=== PATIENT | female | born 1955 | race American Indian/Alaskan Native ===

== ENCOUNTER 2018-11-19 21:09 | Emergency (ER) | payer MEDICARE, OTHER ==
--- NOTE | 2018-11-19 21:46 | EDM.PDOC ---
ED HPI GENERAL MEDICAL PROBLEM - General Chief Complaint: Cardiovascular Problem Stated Complaint: SOB Time Seen by Provider: 11/19/18 21:30 Source of Information: Reports: Patient, Family History Limitations: Reports: No Limitations - History of Present Illness INITIAL COMMENTS - FREE TEXT/NARRATIVE: Juan comes into [facility] ED with progressive SOB over the past 24 hrs. She prefers to sit up when sleeping, and frequently sleeps in a chair. She reports no chest pain, palpitations, PND, PNA, cough or wheezing. She was hospitalized in [place], [place] last February for breathing issues, and has an appointment December 14 with a testing director in [place], [place]. She is currently living with her son and spouse locally. - Related Data Allergies Allergy/AdvReac Type Severity Reaction Status Date / Time Penicillins Allergy Hives Verified 11/19/18 23:14 Home Meds: Home Meds Alogliptin Benzoate [Alogliptin] 12.5 mg PO DAILY 11/19/18 [History] Calcium Carb/Vit D3/Minerals [Hm Calcium 600 mg-Vit D Tab] 600 mg PO BID [History] Cholecalciferol (Vitamin D3) [Vitamin D3] 1,000 units PO DAILY 11/19/18 [History ] Furosemide 40 mg PO DAILY 11/19/18 [History] Gabapentin [Neurontin] 100 mg PO BID 11/19/18 [History] Levothyroxine [Synthroid] 50 mcg PO ACBREAKFAST 11/19/18 [History] Lisinopril 5 mg PO DAILY 11/19/18 [History] Metoprolol Succinate 25 mg PO DAILY 11/19/18 [History] Omeprazole 20 mg PO DAILY 11/19/18 [History] atorvaSTATin [Lipitor] 40 mg PO DAILY 11/19/18 [History] ED ROS GENERAL - Review of Systems Review Of Systems: See Below Constitutional: Reports: Malaise, Weakness, Fatigue Respiratory: Reports: Shortness of Breath Cardiovascular: Reports: Dyspnea on Exertion, Orthopnea Endocrine: Reports: Fatigue GI/Abdominal: Reports: No Symptoms : Reports: No Symptoms Musculoskeletal: Reports: No Symptoms Skin: Reports: No Symptoms Neurological: Reports: No Symptoms Psychiatric: Reports: No Symptoms Hematologic/Lymphatic: Reports: No Symptoms Immunologic: Reports: No Symptoms ED EXAM, GENERAL - Physical Exam Exam: See Below Exam Limited By: No Limitations General Appearance: Alert, WD/WN, Mild Distress Eye Exam: Bilateral Eye: EOMI, Normal Inspection, PERRL Ears: Normal External Exam Nose: Normal Inspection Throat/Mouth: Normal Inspection, Normal Lips, No Airway Compromise Head: Normocephalic Neck: Normal Inspection, Supple, Full Range of Motion Respiratory/Chest: No Respiratory Distress, No Accessory Muscle Use, Chest Non- Tender, Decreased Breath Sounds Cardiovascular: Normal Peripheral Pulses, Regular Rate, Rhythm, No Edema, No Gallop, No Murmur, Other (JVD to 1") GI/Abdominal: Normal Bowel Sounds, Soft, Non-Tender, No Organomegaly, No Distention, No Mass (Female) Exam: Deferred Rectal (Female) Exam: Deferred Back Exam: Normal Inspection Extremities: Normal Inspection Neurological: Alert, Oriented, CN II-XII Intact, No Motor/Sensory Deficits Psychiatric: Normal Mood, Flat Affect Skin Exam: Warm, Dry, Intact, Normal Color, No Rash Lymphatic: No Adenopathy Course - Vital Signs Text/Narrative:: Following assessment, 02 per hydrogenation operator was provided pending results of medical workup including: chest x ray noting cardiac enlargment and pleural effusions; ekg noting NSR with LVH; CBC baseline; CMP noting GFR 22 ml/hr, BNP 35,000, Cr 2.2; BUN 43; mixed CHF is suspected with low output impacting on impaired renal function. I recommended transfer to [facility], and patient wants to go back to [facility] home and travel to [place] tomorrow to see testing director. I again advised transfer to [facility], and patient refused. She promised to go to [facility] tomorrow, and her wishes will be honored. She may return at anytime to expedite care to testing director. - Orders/Labs/Meds Orders: Active Orders 24 hr Category Date Time Status EKG Documentation Completion [RC] ASDIRECTED Care 11/19/18 21:23 Active Chest 1V Frontal [CR] Stat Exams 11/19/18 21:22 Taken EKG 12 Lead [EK] Routine Ther 11/19/18 21:22 Ordered Labs: Laboratory Tests 11/19/18 11/19/18 11/19/18 Range/Units 21:33 21:33 21:33 WBC 7.2 (4.5-12.0) X10-3/uL RBC 3.42 (3.23-5.20) x10(6)uL Hgb 10.6 L (11.5-15.5) g/dL Hct 30.3 (30.0-51.3) % MCV 88.7 (80-96) fL MCH 30.9 (27.7-33.6) pg MCHC 34.9 (32.2-35.4) g/dL RDW 12.6 (11.5-15.5) % Plt Count 251 (125-369) X10(3)uL MPV 8.2 (7.4-10.4) fL Neut % (Auto) 57.9 (46-82) % Lymph % (Auto) 32.2 (13-37) % [place] % (Auto) 4.3 (4-12) % Eos % (Auto) 5 (1.0-5.0) % Baso % (Auto) 1 (0-2) % Neut # (Auto) 4.2 (1.6-8.3) # Lymph # (Auto) 2.3 (0.6-5.0) # [place] # (Auto) 0.3 (0.0-1.3) # Eos # (Auto) 0.4 (0.0-0.8) # Baso # (Auto) 0.0 (0.0-0.2) # D-Dimer, Quantitative 2.13 H (0.0-0.59) mg/LFEU ABG pH (7.35-7.45) ABG pCO2 (35-45) mmHg ABG pO2 (83-108) mmHg ABG HCO3 (22-26) mmol/L ABG O2 Saturation (96-97) % ABG Base Excess (-2-2) Emre Test O2 Delivery Device Sodium 145 (135-145) mmol/L Potassium 4.6 (3.5-5.3) mmol/L Chloride 113 H (100-110) mmol/L Carbon Dioxide 22 (21-32) mmol/L BUN 43 H (7-18) mg/dL Creatinine 2.2 H* (0.55-1.02) mg/dL Est Cr Clr Drug Dosing TNP Estimated GFR (MDRD) 22 L (>60) BUN/Creatinine Ratio 19.5 (9-20) Glucose 195 H (80-116) mg/dL Calcium 8.3 L (8.6-10.2) mg/dL Total Bilirubin 0.2 (0.1-1.3) mg/dL AST 14 (5-25) IU/L ALT 18 (12-36) U/L Alkaline Phosphatase 91 (56-112) IU/L Troponin I (<0.017-0.056) ng/mL NT-Pro-B Natriuret Pep (<=125) pg/mL Total Protein 6.0 (6.0-8.0) g/dL Albumin 2.3 L (3.2-4.6) g/dL Globulin 3.7 g/dL Albumin/Globulin Ratio 0.6 Urine Color (YELLOW) Urine Appearance (CLEAR) Urine pH (5.0-6.5) Ur Specific [place] (1.010-1.025) Urine Protein (NEGATIVE) mg/dL Urine Glucose (UA) (NORMAL) mg/dL Urine Ketones (NEGATIVE) mg/dL Urine Occult Blood (NEGATIVE) Urine Nitrite (NEGATIVE) Urine Bilirubin (NEGATIVE) Urine Urobilinogen (NEGATIVE) mg/dL Ur Leukocyte Esterase (NEGATIVE) Urine RBC (0-5) Urine WBC (0-5) Ur Squamous Epith Cells (NS,R,O) Urine Bacteria (NS) 11/19/18 11/19/18 11/19/18 Range/Units 21:33 21:45 21:56 WBC (4.5-12.0) X10-3/uL RBC (3.23-5.20) x10(6)uL Hgb (11.5-15.5) g/dL Hct (30.0-51.3) % MCV (80-96) fL MCH (27.7-33.6) pg MCHC (32.2-35.4) g/dL RDW (11.5-15.5) % Plt Count (125-369) X10(3)uL MPV (7.4-10.4) fL Neut % (Auto) (46-82) % Lymph % (Auto) (13-37) % [place] % (Auto) (4-12) % Eos % (Auto) (1.0-5.0) % Baso % (Auto) (0-2) % Neut # (Auto) (1.6-8.3) # Lymph # (Auto) (0.6-5.0) # [place] # (Auto) (0.0-1.3) # Eos # (Auto) (0.0-0.8) # Baso # (Auto) (0.0-0.2) # D-Dimer, Quantitative (0.0-0.59) mg/LFEU ABG pH 7.42 (7.35-7.45) ABG pCO2 26 L (35-45) mmHg ABG pO2 72 L (83-108) mmHg ABG HCO3 17 L (22-26) mmol/L ABG O2 Saturation 95 L (96-97) % ABG Base Excess -6.4 L (-2-2) Emre Test Passed O2 Delivery Device Room air Sodium (135-145) mmol/L Potassium (3.5-5.3) mmol/L Chloride (100-110) mmol/L Carbon Dioxide (21-32) mmol/L BUN (7-18) mg/dL Creatinine (0.55-1.02) mg/dL Est Cr Clr Drug Dosing Estimated GFR (MDRD) (>60) BUN/Creatinine Ratio (9-20) Glucose (80-116) mg/dL Calcium (8.6-10.2) mg/dL Total Bilirubin (0.1-1.3) mg/dL AST (5-25) IU/L ALT (12-36) U/L Alkaline Phosphatase (56-112) IU/L Troponin I 0.026 (<0.017-0.056) ng/mL NT-Pro-B Natriuret Pep > 98356 H* (<=125) pg/mL Total Protein (6.0-8.0) g/dL Albumin (3.2-4.6) g/dL Globulin g/dL Albumin/Globulin Ratio Urine Color Yellow (YELLOW) Urine Appearance Slightly cloudy (CLEAR) Urine pH 5.0 (5.0-6.5) Ur Specific [place] 1.020 (1.010-1.025) Urine Protein 500 H (NEGATIVE) mg/dL Urine Glucose (UA) 250 H (NORMAL) mg/dL Urine Ketones Negative (NEGATIVE) mg/dL Urine Occult Blood Moderate H (NEGATIVE) Urine Nitrite Negative (NEGATIVE) Urine Bilirubin Negative (NEGATIVE) Urine Urobilinogen Normal (NEGATIVE) mg/dL Ur Leukocyte Esterase Negative (NEGATIVE) Urine RBC 0-5 (0-5) Urine WBC 5-10 H (0-5) Ur Squamous Epith Cells Few H (NS,R,O) Urine Bacteria Moderate H (NS) Departure - Departure Time of Disposition: 23:50 Disposition: Home, Self-Care 01 Condition: Poor Clinical Impression: Congestive cardiac failure Qualifiers: Heart failure type: biventricular Qualified Code(s): I50.82 - Biventricular heart failure Referrals: PCP,Not In Area [Primary Care Provider] - Forms: ED Department Discharge - Problem List & Annotations (1) Congestive cardiac failure SNOMED Code(s): 02111895 Code(s): I50.9 - HEART FAILURE, UNSPECIFIED Status: Acute Current Visit: Yes Annotation/Comment:: Follow up with Cardiology strongly urged. Qualifiers: Heart failure type: biventricular Qualified Code(s): I50.82 - Biventricular heart failure - Problem List Review Problem List Initiated/Reviewed/Updated: Yes - My Orders Last 24 Hours: My Active Orders 11/19/18 21:22 Chest 1V Frontal [CR] Stat EKG 12 Lead [EK] Routine 11/19/18 21:23 EKG Documentation Completion [RC] ASDIRECTED - Assessment/Plan Last 24 Hours: My Active Orders 11/19/18 21:22 Chest 1V Frontal [CR] Stat EKG 12 Lead [EK] Routine 11/19/18 21:23 EKG Documentation Completion [RC] ASDIRECTED Plan: Follow up with Cardiology as soon as possible.
== END 2018-11-20 00:35 | disposition home or self-care (01) ==
LOC: FB.ED 21:09
DX: I11.0 Hypertensive heart disease with heart failure (principal); I50.82 Biventricular heart failure; E11.9 Type 2 diabetes mellitus without complications; E03.9 Hypothyroidism, unspecified; Z88.0 Allergy status to penicillin; Z79.899 Other long term (current) drug therapy
CPT/HCPCS: 36415; 36600; 71045; 80053; 81001; 82803; 83880; 84484; 85025; 85379; 93005; 99285-25